=== PATIENT | male | born 1955 | race Two or more races ===

== ENCOUNTER 2019-06-15 09:14 | Emergency (ER) | payer MEDICARE, OTHER ==
[~2019-06-15] VITALS: Ht 165.1 cm; Wt 90.7 kg
--- NOTE | 2019-06-15 09:25 | NUR ---
ED Nurse Note: PT WALKED IN TO ER TODAY FROM HOME. AOX4. PT C/O PAIN, 9/10 RADIATING FROM BILATERAL EARS TO ANTERIOR THROAT X 5 DAYS AGO. PT ALSO STATES HE HAS BEEN UNABLE TO EAT FOR THE LAST 3 DAYS AND HAD DIFFICULTY BREATHING LAST NIGHT. AT BEDSIDE, RR17, O2SAT 96% AND PT ABLE TO SPEAK IN FULL SENTENCES. PT PRESENTS WITH MASS TO ANTERIOR THROAT THAT IS PAINFUL TO TOUCH.
[2019-06-15] MEDS ORDERED: ROPINIROLE HCL2 M1 PO (09:29)
[2019-06-15] MEDS ORDERED: DULOXETINE HCL60 MG PO (09:29)
[2019-06-15] MEDS ORDERED: LISINOPRIL10 MG ORAL (09:29)
[2019-06-15] MEDS ORDERED: OMEPRAZOLE20 M2 ORAL (09:29)
[2019-06-15] MEDS ORDERED: CELEXA40 MG ORAL (09:29)
[2019-06-15] MEDS ORDERED: EC-NAPROXEN500 MG PO (09:29)
[2019-06-15] MEDS ORDERED: SIMVASTATIN40 MG ORAL (09:30)
[2019-06-15] MEDS ORDERED: METFORMIN HCL1000 M1 ORAL (09:30)
[2019-06-15] MEDS ORDERED: NEURONTIN300 MG ORAL (09:30)
--- NOTE | 2019-06-15 09:40 | Emergency Room Report ---
History of Present Illness General Chief Complaint: Sore Throat Source: Patient Present Illness HPI Patient presents with complaints of difficulty swallowing and pain to the throat area Patient reports that over the past several days he has had increased discomfort initially noticed some swelling to the Area just in front of the right ear And over the next several days swelling became worse also noticed that in the lower neck area and with increased pain on swallowing patient reports being seen at a hospital in [place] yesterday and was told to present To emergency room for further evaluation Denies any chest pain denies any shortness of breath denies any vomiting or diarrhea Denies any fevers or chills Allergies: Coded Allergies: No Known Allergies (Unverified , 06/15/19) Patient History Past Medical History: see triage record Pertinent Family History: none Reviewed Nursing Documentation: PMH: Agreed; PSxH: Agreed Nursing Documentation-PMH Past Medical History: No History, Except For Hx Hypertension: Yes Hx Diabetes: Yes Review of Systems All Other Systems: negative except mentioned in HPI Physical Exam Vital Signs Date Time Temp Pulse Resp B/P (MAP) Pulse Ox O2 Delivery O2 Flow Rate FiO2 06/15/19 09:23 97.9 102 16 133/84 (100) 96 Room Air Sp02 EP Interpretation: reviewed, normal General Appearance: no apparent distress Head: normocephalic, atraumatic Eyes: bilateral eye PERRL, bilateral eye EOMI ENT: other - Fullness to the right peritonsillar region, uvula deviates to the left, voice is normal, patient also has palpable mass under the chin Neck: other - As above Respiratory: lungs clear, no respiratory distress, no retraction Cardiovascular #1: regular rate, rhythm Gastrointestinal: non tender, soft Musculoskeletal: normal inspection, back normal Neurologic: alert, oriented x3 Psychiatric: normal inspection Skin: other - Palpable mass below the chin Lymphatic: no adenopathy Procedures Critical Care Time Critical Care Time 50 minutes for critical findings concerning for respiratory deterioration and possible not including any procedural time Medical Decision Making Diagnostic Impression: Primary Impression: Retropharyngeal abscess ER Course Given the patient's history and presentation multiple differentials and consideration including but not limited to peritonsillar abscess, retropharyngeal abscess Patient has extensive blood work initiated CT imaging does reveal findings consistent with retropharyngeal abscess there is evidence of deviation with the fullness Antibiotics and anti-inflammatory medicine initiated Patient requires further ENT specialty consultation and therefore will require transfer to tertiary facility Patient remains hemodynamically stable airway remains patent on repeat evaluation no evidence of stridor or other upper airway pathology Labs Test 06/15/19 09:30 White Blood Count 11.9 K/UL (4.8-10.8) Red Blood Count 5.64 M/UL (4.70-6.10) Hemoglobin 16.4 G/DL (14.2-18.0) Hematocrit 50.2 % (42.0-52.0) Mean Corpuscular Volume 89 FL (80-99) Mean Corpuscular Hemoglobin 29.2 PG (27.0-31.0) Mean Corpuscular Hemoglobin Concent 32.7 G/DL (32.0-36.0) Red Cell Distribution Width 12.9 % (11.6-14.8) Platelet Count 312 K/UL (150-450) Mean Platelet Volume 5.8 FL (6.5-10.1) Neutrophils (%) (Auto) 68.8 % (45.0-75.0) Lymphocytes (%) (Auto) 17.8 % (20.0-45.0) Monocytes (%) (Auto) 11.6 % (1.0-10.0) Eosinophils (%) (Auto) 0.6 % (0.0-3.0) Basophils (%) (Auto) 1.1 % (0.0-2.0) Sodium Level 131 MMOL/L (136-145) Potassium Level 4.8 MMOL/L (3.5-5.1) Chloride Level 97 MMOL/L (98-107) Carbon Dioxide Level 24 MMOL/L (21-32) Anion Gap 10 mmol/L (5-15) Blood Urea Nitrogen 32 mg/dL (7-18) Creatinine 1.3 MG/DL (0.55-1.30) Estimat Glomerular Filtration Rate 56.1 mL/min (>60) Glucose Level 404 MG/DL (74-106) Lactic Acid Level 1.10 mmol/L (0.4-2.0) Calcium Level 9.4 MG/DL (8.5-10.1) Total Bilirubin 0.5 MG/DL (0.2-1.0) Aspartate Amino Transf (AST/SGOT) 53 U/L (15-37) Alanine Aminotransferase (ALT/SGPT) 52 U/L (12-78) Alkaline Phosphatase 112 U/L (46-116) Total Creatine Kinase 809 U/L (26-308) Creatine Kinase MB 3.5 NG/ML (0.0-3.6) Creatine Kinase MB Relative Index 0.4 Total Protein 8.1 G/DL (6.4-8.2) Albumin 3.3 G/DL (3.4-5.0) Globulin 4.8 g/dL Albumin/Globulin Ratio 0.7 (1.0-2.7) Lipase 144 U/L (73-393) Thyroid Stimulating Hormone (TSH) 6.666 uiU/mL (0.358-3.740) Free Thyroxine 1.28 NG/DL (0.76-1.46) Chest X-Ray Diagnostic Results Chest X-Ray Diagnostic Results : Chest X-Ray Ordered: Yes # of Views/Limited/Complete: 1 View Indication: Chest Pain EP Interpretation: Yes Interpretation: no consolidation, no effusion, no pneumothorax Impression: No acute disease Electronically Signed by: Linda Somers DO CT/MRI/US Diagnostic Results CT/MRI/US Diagnostic Results : Impression CT neckIMPRESSION: Acute right parapharyngeal and retropharyngeal abscess resulting in mass effect and partial effacement of the supraglottic airway. Origin of the infection is not known but consider tonsillitis or sialoadenitis. Last Vital Signs Date Time Temp Pulse Resp B/P (MAP) Pulse Ox O2 Delivery O2 Flow Rate FiO2 06/15/19 09:23 97.9 102 16 133/84 (100) 96 Room Air Status: improved Disposition: XFER SHT-TRM HOSP Condition: Serious Linda Somers DO Jun 15, 2019 09:40
[2019-06-15] MEDS ORDERED: Isovue-300 100ml vial INJ PRN (09:45)
[2019-06-15 09:53] VITALS: BP 135/83
[2019-06-15 10:04] LABS: BASOPHILS % (AUTO) 1.1 % (0.0-2.0); EOSINOPHILS % (AUTO) 0.6 % (0.0-3.0); HEMATOCRIT 50.2 % (42.0-52.0); HEMOGLOBIN 16.4 G/DL (14.2-18.0); LYMPHOCYTES % (AUTO) 17.8 % (20.0-45.0); MEAN CORPUSCULAR VOLUME 89 FL (80-99); MONOCYTES % (AUTO) 11.6 % (1.0-10.0); NEUTROPHILS % (AUTO) 68.8 % (45.0-75.0); PLATELET COUNT 312 K/UL (150-450); RED BLOOD COUNT 5.64 M/UL (4.70-6.10); RED CELL DISTRIBUTION WIDTH 12.9 % (11.6-14.8); WHITE BLOOD COUNT 11.9 K/UL (4.8-10.8)
[2019-06-15 10:59] LABS: ANION GAP 10 mmol/L (5-15); BLOOD UREA NITROGEN 32 mg/dL (7-18); CALCIUM 9.4 MG/DL (8.5-10.1); CARBON DIOXIDE 24 MMOL/L (21-32); CHLORIDE 97 MMOL/L (98-107); CREATININE 1.3 MG/DL (0.55-1.30); POTASSIUM 4.8 MMOL/L (3.5-5.1); SODIUM 131 MMOL/L (136-145)
[2019-06-15 11:13] LABS: ALANINE AMINOTRANSFERASE 52 U/L (12-78); ALBUMIN 3.3 G/DL (3.4-5.0); ALBUMIN/GLOBULIN RATIO 0.7 (1.0-2.7); ALKALINE PHOSPHATASE 112 U/L (46-116); ASPARTATE AMINO TRANSFERASE 53 U/L (15-37); BILIRUBIN,TOTAL 0.5 MG/DL (0.2-1.0); CKMB 3.5 NG/ML (0.0-3.6); CREATINE KINASE 809 U/L (26-308)
--- NOTE | 2019-06-15 11:16 | NUR ---
ED Nurse Note: PT TO CT.
--- NOTE | 2019-06-15 11:31 | NUR ---
ED Nurse Note: PT BACK FROM CT.
--- NOTE | 2019-06-15 12:26 | Diagnostic Imaging Report ---
Indication: Neck pain. Technique: Continuous helical imaging of the neck was obtained transaxially from the skull base to the upper thoracic spine during intravenous administration of nonionic contrast. 2-D coronal and sagittal reformatted images were obtained. Total Dose length Product (DLP): 661.[address] Dose Index Volume (CTDIvol): 18.96 mGy Comparison: None Findings: In the anterior aspect of the neck, anterior to the thyroid lamina/strap muscle and posterior to platysma muscle, there is an area of inflammation with soft tissue stranding and suggestion of an ill-defined fluid collection right of midline measuring about 4.6 x 1.7 cm. The inflammation and fluid is contiguous with the floor the mouth in the right sublingual and submandibular region as well as extending into the right aspect of the retropharyngeal space. Small foci of air are demonstrated within the right parapharyngeal fat which is effaced. The edema and inflammation of the right pharyngeal mucosa at the level of the supraglottic airway with thickening of the right aryepiglottic folds. There is enlargement of the right oral pharynx and palatine tonsil. There is thickening of the uvula. There are no submandibular or sublingual stones identified. Reactive adenopathy noted. Findings are consistent with right parapharyngeal/retropharyngeal abscess. The parotid gland is unremarkable. The thyroid gland is in its normal location and is unremarkable. Major vessels in the neck enhance normally including the extracranial portions of both carotid arteries, jugular veins. The mastoids are clear and appear normal. The visualized paranasal sinuses are clear. Skull base structures are unremarkable. The lung apices are clear. Mild degenerative changes of the cervical spine noted IMPRESSION: Acute right parapharyngeal and retropharyngeal abscess resulting in mass effect and partial effacement of the supraglottic airway. Origin of the infection is not known but consider tonsillitis or sialoadenitis. The CT scanner at [facility] is accredited by the [employer] and the scans are performed using dose optimization techniques as appropriate to a performed exam including Automatic Exposure control.
[2019-06-15] MEDS ORDERED: Ketorolac 30mg Inj IV ONE (12:30)
[2019-06-15] MEDS ORDERED: Clindamycin 600mg 50 ML IVPB ONE (12:30)
[2019-06-15] MEDS ORDERED: Solu-MEDROL 125mg Inj IVP ONE (12:30)
--- NOTE | 2019-06-15 13:59 | Diagnostic Imaging Report ---
Indication: Chest pain Comparison: None A single view chest radiograph was obtained. Findings: No definite infiltrate or pulmonary vascular congestion identified. The heart is enlarged. The aorta is mildly enlarged consistent with atherosclerotic vascular disease. The bones are osteopenic. Impression: No acute disease
[2019-06-15 19:00] VITALS: BP 129/72
--- NOTE | 2019-06-15 19:02 | NUR ---
HAND-OFF: REPORT GIVEN TO ANDREA SEGAL.
--- NOTE | 2019-06-15 19:46 | NUR ---
ED Nurse Note: Called [facility] per Susana, the accepting nurse will call back [email or web address] maria 20 min.
--- NOTE | 2019-06-15 19:50 | NUR ---
ED Nurse Note: Report given to ANDREA Dennis from [facility] [place]. awaiting for transportation. VSS
[2019-06-15 21:00] VITALS: BP 127/75
--- NOTE | 2019-06-15 21:12 | NUR ---
ED Nurse Note: [facility] arrived ( unit [id number]). report given to ambulace personnel.
[2019-06-15 21:16] VITALS: BP 132/78
--- NOTE | 2019-06-15 21:17 | NUR ---
ER DISCHARGE NOTE: Patient is cleared to be discharged per ERMD, pt is aox4, on room air, with stable vital signs. ID band removed. pt was transfered to [facility] via [facility] by [facility]. Addendum: 06/15/19 at 2127 by JAYSON ER DISCHARGE NOTE: Patient is cleared to be discharged per ERMD, pt is aox4, on room air, with stable vital signs. ID band removed. pt was transfered to [facility] via [facility] by [facility]. All Belongings and home meds left with patient.
--- NOTE | 2019-06-20 20:52 | Cardiology Report ---
APPROVED REPORT EKG Measurement Heart [id number] Normal sinus rhythm Anterior infarct, age undetermined Abnormal ECG
== END 2019-06-15 21:17 | disposition short-term general hospital (02) ==
LOC: EMR 09:49
DX: J39.0 Retropharyngeal and parapharyngeal abscess (principal); E11.9 Type 2 diabetes mellitus without complications; I10 Essential (primary) hypertension
CPT/HCPCS: 36415; 70491; 71045; 80053; 82550; 82553; 82962; 83605; 83690; 84439; 84443; 85025; 87040; 93005; 96361; 96365; 96375; 99291; J1885; J2930; Q9967; S0077